=== PATIENT | female | born 1970 | race Caucasian/White ===

== ENCOUNTER 2016-12-30 18:15 | Emergency (ER) | payer OTHER ==
[~2016-12-30] VITALS: Ht 167.6 cm; Wt 56.2 kg
[2016-12-30] MEDS ORDERED: METF500T4 PO (18:46)
[2016-12-30] MEDS ORDERED: CLON-364 PO (18:46)
[2016-12-30] MEDS ORDERED: LAMO300T2 PO (18:46)
[2016-12-30] MEDS ORDERED: HALO5TAB5 PO (18:46)
[2016-12-30 19:44] LABS: BLOOD UREA NITROGEN 11 mg/dL (7-18)
[2016-12-30 19:50] LABS: ACETAMINOPHEN < 2 mcg/mL (10-30)
[2016-12-30 21:12] LABS: DAU SCREEN DISCLAIMER
[2016-12-30 21:36] LABS: PATH.CAST-FLAG NOT PRESENT; SPERM-FLAG NOT PRESENT; SRC-FLAG NOT PRESENT; XTAL-FLAG NOT PRESENT; YLC-FLAG NOT PRESENT
[2016-12-30 23:17] VITALS: BP 100/74
== END 2016-12-30 23:19 | disposition home or self-care (01) ==
LOC: ED 19:47
DX: F33.2 Major depressive disorder, recurrent severe without psychotic features (principal); E11.9 Type 2 diabetes mellitus without complications; F41.1 Generalized anxiety disorder; F12.10 Cannabis abuse, uncomplicated
CPT/HCPCS: 36415; 80048; 80307; 80329; 81001; 82040; 84703; 85025; 87086; 99284; G0480

== ENCOUNTER 2017-01-16 09:06 | Observation (INO) | payer OTHER ==
[~2017-01-16] VITALS: Ht 167.6 cm; Wt 52.0 kg
[~2017-01-16 09:06] MED LIST: CLON-364 PO; HALO5TAB5 PO; LAMO300T2 PO; METF500T4 PO
[2017-01-16 10:22] LABS: DAU SCREEN DISCLAIMER
[2017-01-16 10:31] LABS: BLOOD UREA NITROGEN 13 mg/dL (7-18)
[2017-01-16 10:40] LABS: ACETAMINOPHEN < 2 mcg/mL (10-30)
[2017-01-16 14:01] VITALS: BP 102/64
[2017-01-16] MEDS ORDERED: DOCUSATE 100 MG CAPSULE PO PRN (15:30)
[2017-01-16] MEDS ORDERED: ACETAMINOPHEN 325 MG TABLET PO PRN (15:30)
[2017-01-16] MEDS ORDERED: LORazepam 1MG TABLET PO PRN (15:30)
[2017-01-16] MEDS: NICOTINE 7 MG/24 HR PATCH.TD24 TD SCH (16:57)
[2017-01-16] MEDS: metFORMIN 500 MG TABLET PO SCH (17:24)
[2017-01-16 19:35] VITALS: BP 85/45
[2017-01-16 19:52] LABS: PATH.CAST-FLAG NOT PRESENT; SPERM-FLAG NOT PRESENT; SRC-FLAG NOT PRESENT; XTAL-FLAG NOT PRESENT; YLC-FLAG NOT PRESENT
[2017-01-16] MEDS: HALOPERIDOL 1 MG TABLET PO SCH (20:39)
[2017-01-17 07:24] VITALS: BP 90/58
[2017-01-17] MEDS: metFORMIN 500 MG TABLET PO SCH ×3 (08:00→17:00)
[2017-01-17] MEDS ORDERED: LAMOTRIGINE 100 MG TABLET PO SCH ×2 (09:00→13:00)
[2017-01-17] MEDS: HALOPERIDOL 1 MG TABLET PO SCH ×2 (09:00→20:54)
[2017-01-17] MEDS: NICOTINE 7 MG/24 HR PATCH.TD24 TD SCH (17:00)
[2017-01-17 20:17] VITALS: BP 93/58
[2017-01-17] MEDS: LAMOTRIGINE 200 MG TABLET PO SCH (20:54)
[2017-01-18 07:51] VITALS: BP 101/68
[2017-01-18] MEDS: metFORMIN 500 MG TABLET PO SCH ×3 (08:03→17:00)
[2017-01-18] MEDS: HALOPERIDOL 1 MG TABLET PO SCH (08:04)
[2017-01-18] MEDS: LAMOTRIGINE 200 MG TABLET PO SCH (08:04)
[2017-01-18] MEDS: NICOTINE 7 MG/24 HR PATCH.TD24 TD SCH (16:32)
== END 2017-01-18 17:18 ==
LOC: ED 10:18 → EDIP 11:10 → 3E 13:47
PROVIDERS: ADMIT Internal Medicine; ATTEND Internal Medicine
DX: R45.851 Suicidal ideations (principal); R44.0 Auditory hallucinations; F31.9 Bipolar disorder, unspecified; F25.9 Schizoaffective disorder, unspecified; E11.9 Type 2 diabetes mellitus without complications; N39.0 Urinary tract infection, site not specified; F12.90 Cannabis use, unspecified, uncomplicated; F17.210 Nicotine dependence, cigarettes, uncomplicated; Z81.8 Family history of other mental and behavioral disorders; Z91.5 Personal history of self-harm
CPT/HCPCS: 36415; 80048; 80307; 80329; 81001; 82040; 82962; 84439; 84443; 84703; 85025; 87086; 99285; G0378; G0480

== ENCOUNTER 2017-02-01 07:22 | Inpatient (IN) | payer OTHER ==
[~2017-02-01] VITALS: Ht 167.6 cm; Wt 60.2 kg
[2017-02-01] MEDS ORDERED: SODIUM CHLORIDE 0.9% 1,000ML IVBOLUS ONE (07:30)
[2017-02-01] MEDS ORDERED: CLON1TAB23 PO (07:54)
[2017-02-01 08:02] LABS: ASPARTATE AMINO TRANSFERASE 11 U/L (15-37); BLOOD UREA NITROGEN 16 mg/dL (7-18)
[2017-02-01 08:09] LABS: ACETAMINOPHEN < 2 mcg/mL (10-30)
[2017-02-01 08:30] LABS: DAU SCREEN DISCLAIMER
[2017-02-01] MEDS ORDERED: ONDANSETRON 2MG/ML, 2ML IVPush PRN (13:00)
[2017-02-01] MEDS ORDERED: ACETAMINOPHEN 325 MG TABLET PO PRN (13:00)
[2017-02-01] MEDS: INSULIN ASPART 100 UNITS/ML, PEN SQ-INSULIN SCH ×3 (13:00→21:06)
[2017-02-01 15:17] VITALS: BP 124/76
[2017-02-01] MEDS: SODIUM CHLORIDE 0.9% 1,000 ML IV SCH ×2 (15:47→21:06)
[2017-02-01] MEDS: ENOXAPARIN 40 MG/0.4 ML SQ SCH (15:47)
[2017-02-01] MEDS: NICOTINE 21 MG/24 HR PATCH.TD24 TD SCH (15:47)
[2017-02-01 15:50] VITALS: BP 124/76
[2017-02-01 19:16] VITALS: BP 108/64
[2017-02-02 02:00] VITALS: BP 110/58
[2017-02-02] MEDS: SODIUM CHLORIDE 0.9% 1,000 ML IV SCH ×3 (03:28→17:33)
[2017-02-02 06:00] LABS: ASPARTATE AMINO TRANSFERASE 12 U/L (15-37); BLOOD UREA NITROGEN 16 mg/dL (7-18)
[2017-02-02] MEDS: INSULIN ASPART 100 UNITS/ML, PEN SQ-INSULIN SCH ×4 (07:00→20:21)
[2017-02-02 08:00] VITALS: BP 101/67
[2017-02-02] MEDS: ENOXAPARIN 40 MG/0.4 ML SQ SCH (14:18)
[2017-02-02] MEDS: NICOTINE 21 MG/24 HR PATCH.TD24 TD SCH (14:18)
[2017-02-02 14:30] VITALS: BP 111/70
[2017-02-02 19:29] VITALS: BP 115/75
[2017-02-03 01:26] VITALS: BP 99/67
[2017-02-03] MEDS: SODIUM CHLORIDE 0.9% 1,000 ML IV SCH ×3 (01:35→18:31)
[2017-02-03 07:20] VITALS: BP 110/72
[2017-02-03] MEDS: INSULIN ASPART 100 UNITS/ML, PEN SQ-INSULIN SCH ×4 (09:47→21:14)
[2017-02-03 12:34] VITALS: BP 105/66
[2017-02-03] MEDS: ENOXAPARIN 40 MG/0.4 ML SQ SCH (16:35)
[2017-02-03] MEDS: NICOTINE 21 MG/24 HR PATCH.TD24 TD SCH (16:36)
[2017-02-03] MEDS ORDERED: POLYETHYLENE GLYCOL 17 GM PACKET PO ONE (18:00)
[2017-02-03 20:50] VITALS: BP 99/63
[2017-02-03] MEDS ORDERED: ACETAMINOPHEN 325 MG TABLET PO PRN (22:30)
[2017-02-03] MEDS ORDERED: ONDANSETRON 2MG/ML, 2ML IVPush PRN (22:30)
[2017-02-04 07:39] VITALS: BP 113/72
[2017-02-04 08:00] VITALS: BP 113/72
[2017-02-04] MEDS: INSULIN ASPART 100 UNITS/ML, PEN SQ-INSULIN SCH ×3 (08:17→16:00)
[2017-02-04] MEDS: NICOTINE 21 MG/24 HR PATCH.TD24 TD SCH (13:12)
[2017-02-04] MEDS: ENOXAPARIN 40 MG/0.4 ML SQ SCH (13:13)
== END 2017-02-04 18:58 | DRG 917 ==
LOC: ED 09:09 → EDIP 11:12 → OBSVTOIN 12:48 → 4WST 15:05 → 4EST 02-03 03:42 → 4WST 02-03 14:49 → 3E 02-03 21:45
PROVIDERS: ADMIT Hospitalist; ATTEND Internal Medicine
DX: T42.4X2A Poisoning by benzodiazepines, intentional self-harm, initial encounter (principal); G92 Toxic encephalopathy; E11.9 Type 2 diabetes mellitus without complications; F25.9 Schizoaffective disorder, unspecified; F31.9 Bipolar disorder, unspecified; F17.210 Nicotine dependence, cigarettes, uncomplicated; Z90.710 Acquired absence of both cervix and uterus; Z91.5 Personal history of self-harm; Y92.89 Other specified places as the place of occurrence of the external cause; Z88.5 Allergy status to narcotic agent; Z79.84 Long term (current) use of oral hypoglycemic drugs
CPT/HCPCS: 36415; 70450; 70551; 80053; 80307; 80329; 81001; 82962; 83036; 83735; 84100; 84439; 84443; 84703; 85025; 87086; 93005; 99285; G0378; J1650; J1815; G0480; J7030

== ENCOUNTER 2017-02-21 10:08 | Observation (INO) | payer OTHER ==
[~2017-02-21] VITALS: Ht 167.6 cm; Wt 60.2 kg
[~2017-02-21 10:08] MED LIST changes: +CLON1TAB23 PO
[2017-02-21] MEDS ORDERED: HYDR50CA PO (10:43)
[2017-02-21] MEDS ORDERED: METF500T4 PO (10:43)
[2017-02-21] MEDS ORDERED: LAMO100T5 PO (10:43)
[2017-02-21] MEDS ORDERED: CITA20TA5 PO (10:43)
[2017-02-21] MEDS ORDERED: DIAZ5TAB4 PO (10:43)
[2017-02-21] MEDS ORDERED: TRAZ100T15 PO (10:43)
[2017-02-21] MEDS ORDERED: BUSP15TA PO (10:43)
[2017-02-21] MEDS ORDERED: MIRT15TA4 PO (10:43)
[2017-02-21 11:00] LABS: ASPARTATE AMINO TRANSFERASE 11 U/L (15-37); BLOOD UREA NITROGEN 11 mg/dL (7-18)
[2017-02-21 11:15] LABS: ACETAMINOPHEN < 2 mcg/mL (10-30)
[2017-02-21 11:25] LABS: DAU SCREEN DISCLAIMER
[2017-02-21] MEDS ORDERED: POLYETHYLENE GLYCOL 17 GM PACKET PO PRN (14:00)
[2017-02-21] MEDS ORDERED: HYDROcodone/APAP 5/325 TABLET PO PRN (14:00)
[2017-02-21] MEDS ORDERED: ONDANSETRON ODT 4 MG PO PRN (14:00)
[2017-02-21] MEDS ORDERED: DOCUSATE 100 MG CAPSULE PO PRN (14:00)
[2017-02-21 19:47] VITALS: BP 92/60
[2017-02-21] MEDS: metFORMIN 500 MG TABLET PO SCH (21:46)
[2017-02-21] MEDS: MIRTAZAPINE 15 MG TABLET PO SCH (21:46)
[2017-02-21] MEDS: LAMOTRIGINE 100 MG TABLET PO SCH (21:46)
[2017-02-22 06:53] LABS: BLOOD UREA NITROGEN 10 mg/dL (7-18)
[2017-02-22 07:53] VITALS: BP 81/51
[2017-02-22] MEDS: LAMOTRIGINE 100 MG TABLET PO SCH ×2 (09:02→21:17)
[2017-02-22] MEDS: metFORMIN 500 MG TABLET PO SCH ×2 (09:02→21:17)
[2017-02-22] MEDS: hydrOXyzine 50MG TABLET PO SCH ×2 (15:45→19:57)
[2017-02-22 19:29] VITALS: BP 94/60
[2017-02-22] MEDS: BUSPIRONE 10 MG TABLET PO SCH (19:57)
[2017-02-22] MEDS: MIRTAZAPINE 15 MG TABLET PO SCH (21:44)
[2017-02-23 08:20] VITALS: BP 82/48
[2017-02-23] MEDS: hydrOXyzine 50MG TABLET PO SCH ×3 (09:00→21:48)
[2017-02-23] MEDS: metFORMIN 500 MG TABLET PO SCH ×3 (09:02→21:48)
[2017-02-23] MEDS: LAMOTRIGINE 100 MG TABLET PO SCH ×2 (09:02→21:48)
[2017-02-23] MEDS: CITALOPRAM 20 MG TABLET PO SCH (09:02)
[2017-02-23] MEDS: BUSPIRONE 10 MG TABLET PO SCH ×2 (09:02→21:47)
[2017-02-23] MEDS ORDERED: MAGNESIUM CITRATE 300ML ORAL SOL PO PRN (11:30)
[2017-02-23 19:41] VITALS: BP 97/60
[2017-02-23] MEDS: MIRTAZAPINE 15 MG TABLET PO SCH (21:48)
[2017-02-24 06:02] LABS: BLOOD UREA NITROGEN 13 mg/dL (7-18)
[2017-02-24] MEDS: hydrOXyzine 50MG TABLET PO SCH ×3 (08:17→20:35)
[2017-02-24] MEDS: BUSPIRONE 10 MG TABLET PO SCH ×2 (08:17→20:35)
[2017-02-24] MEDS: metFORMIN 500 MG TABLET PO SCH ×3 (08:18→20:36)
[2017-02-24] MEDS: LAMOTRIGINE 100 MG TABLET PO SCH ×2 (08:20→20:36)
[2017-02-24 08:22] VITALS: BP 106/69
[2017-02-24] MEDS: CITALOPRAM 20 MG TABLET PO SCH (08:41)
[2017-02-24 19:57] VITALS: BP 93/55
[2017-02-24] MEDS: MIRTAZAPINE 15 MG TABLET PO SCH (20:36)
[2017-02-25 08:08] VITALS: BP 108/72
[2017-02-25] MEDS: hydrOXyzine 50MG TABLET PO SCH (08:18)
[2017-02-25] MEDS: CITALOPRAM 20 MG TABLET PO SCH (08:18)
[2017-02-25] MEDS: BUSPIRONE 10 MG TABLET PO SCH (08:18)
[2017-02-25] MEDS: metFORMIN 500 MG TABLET PO SCH (08:19)
[2017-02-25] MEDS: LAMOTRIGINE 100 MG TABLET PO SCH (08:19)
[2017-02-25] MEDS ORDERED: METF500T PO (14:10)
[2017-02-25] MEDS ORDERED: GABA-826 PO (14:10)
[2017-02-25 20:00] VITALS: BP 112/72
[2017-02-25] MEDS ORDERED: GABAPENTIN 100 MG CAPSULE PO SCH (21:00)
== END 2017-02-25 12:45 ==
LOC: ED 10:27 → EDIP 12:47 → 3E 18:28
PROVIDERS: ADMIT Family Medicine; ATTEND Family Medicine
DX: R45.851 Suicidal ideations (principal); F31.9 Bipolar disorder, unspecified; E87.1 Hypo-osmolality and hyponatremia; D72.829 Elevated white blood cell count, unspecified; E11.65 Type 2 diabetes mellitus with hyperglycemia; E11.42 Type 2 diabetes mellitus with diabetic polyneuropathy; F25.9 Schizoaffective disorder, unspecified; K59.00 Constipation, unspecified; F41.9 Anxiety disorder, unspecified; F17.200 Nicotine dependence, unspecified, uncomplicated
CPT/HCPCS: 36415; 80048; 80053; 80307; 80329; 82040; 84439; 84443; 84703; 85025; 99285; G0378; G0480